=== PATIENT | female | born 1940 | race Caucasian/White ===

== ENCOUNTER 2023-02-01 02:25 | Day surgery (SDC) | payer MEDICARE, SELFPAY ==
[2023-01-31 13:30] VITALS: BMI 36.3
--- NOTE | 2023-02-01 09:30 | ECG_ITS ---
Measurements Intervals [place] Rate: 62 P: 66 DC: 205 QRS: -37 QRSD: 108 T: 11 QT: 449 QTc: 459 Interpretive Statements SINUS RHYTHM MARKED LEFT AXIS DEVIATION [QRS AXIS < -30] LOW QRS VOLTAGE IN PRECORDIAL LEADS [QRS DEFLECTION < 1.0 mV IN CHEST LEADS] PATTERN CONSISTENT WITH PULMONARY DISEASE INCOMPLETE RIGHT BUNDLE BRANCH BLOCK [90+ ms QRS DURATION, TERMINAL R IN V1/V2, 40+ ms S IN I/aVL/V4/V5/V6] ABNORMAL ECG Electronically Signed On 02-01-2023 12:01:43 CDT by Bryan Murcia M.D.
[2023-02-01 09:55] VITALS: BP 154/73; PULSE 83; RESP 16; O2SAT 96; BMI 36.3
--- NOTE | 2023-02-01 10:10 | WPDMODSED ---
Moderate Sedation Note-Pt Data Patient Data Diagnosis: atrial fibrillation Present Complaint: atrial fibrillation Procedure to be performed/Plan: moderate sedation electrical cardioversion Allergies Allergy/AdvReac Type Severity Reaction Status Date / Time No Known Allergies Allergy Verified 02/01/23 09:52 Home Medications Medication Instructions Recorded Confirmed Type albuterol sulfate 90 mcg/actuation 2 puff inhalation Q6H PRN Wheezing 01/31/23 01/31/23 History aerosol inhaler amiodarone 100 mg tablet 100 mg PO DAILY 01/31/23 01/31/23 History amlodipine 2.5 mg tablet 2.5 mg PO DAILY 01/31/23 01/31/23 History atorvastatin 20 mg tablet 20 mg PO DAILY 01/31/23 01/31/23 History cetirizine 10 mg tablet (Zyrtec) 10 mg PO DAILY 01/31/23 01/31/23 History cholecalciferol (vitamin D3) 25 25 mcg PO DAILY 01/31/23 01/31/23 History mcg (1,000 unit) tablet cyanocobalamin (vitamin B-12) 100 100 mcg PO DAILY 01/31/23 01/31/23 History mcg tablet famotidine 20 mg tablet 20 mg PO DAILY 01/31/23 01/31/23 History levothyroxine 25 mcg tablet 25 mcg PO DAILY 01/31/23 01/31/23 History losartan 100 1 tablet PO DAILY 01/31/23 01/31/23 History mg-hydrochlorothiazide 25 mg tablet meclizine 12.5 mg tablet 12.5 mg PO BID PRN Vertigo 01/31/23 01/31/23 History rivaroxaban 15 mg tablet (Xarelto) 15 mg PO DAILY 01/31/23 01/31/23 History semaglutide 0.25 mg or 0.5 mg (2 0.5 mg subcut WEEKLY 01/31/23 01/31/23 History mg/1.5 mL) subcutaneous pen injector Current Medications: Active Medications Sodium Chloride (Normal Saline Iv) 1,000 mls @ 30 mls/hr IV CONT .Q24H [facility] Miscellaneous Information (Please Add Drug Allergy Info To Patient Profile.) 1 each XX CLARIFY [facility] Stop: 03/02/23 00:00 Sedation/Anesthesia: No previous sedation/anesthesia problems (including family history). [facility] Past Medical History Medical History (Updated 02/01/23 @ 10:11 by Bryan Murcia MD) Paroxysmal atrial fibrillation Social History Social History Smoking status: Never smoker Second hand tobacco smoke exposure: No Alcohol intake: current Drinks per week: 2 Substance use: never Substance use type: does not use Living arrangements: with family Spiritual care concerns: No Mod Sed Physical Exam Physical Exam Pre Procedural Exam: Normal: Appearance, Eyes, Ears, Nose, Neck, Throat, Airway, Lungs, Heart Size, Heart Rate, Neuro Exam, Abdomen, Extremities and Skin and Variation: Heart Rhythm ( irregular irregular) Hours since solid foods: 12 Hours since liquid intake: 12 Mallampati Classification: class II Internal Medicine - PN: Obj Da Vital Signs Vital Signs: Vital Signs - 24 hr 02/01/23 09:55 Pulse Rate 83 Respiratory Rate 16 Blood Pressure 154/73 H Pulse Oximetry 96 Oxygen Delivery Room Air Meds/Results Medications: Active Medications Generic Name Dose Route Start Last Admin Trade Name Freq PRN Reason Stop Dose Admin Sodium Chloride 1,000 mls @ 30 mls/hr 02/01/23 09:30 Normal Saline Iv IV CONT .Q24H [facility] Miscellaneous Information 1 each 01/31/23 00:01 Please Add Drug Allergy Info To Patient Profile. XX 03/02/23 00:00 CLARIFY [facility] Labs 02/01/23 09:51 ASA Classification/Sedation ASA Classification/Sedation ASA Class: II Emergent: No Risks: Risks, benefits and alternatives explained and patient/family accepted plan for sedation. Patient re-evaluated immediately prior to sedation.
[2023-02-01 10:14] LABS: Anion Gap 3 mmol/L (8-16); Blood Urea Nitrogen 24 mg/dL (7-17); Calcium 9.3 mg/dL (8.4-10.2); Carbon Dioxide 31 mmol/L (22-30); Chloride 105 mmol/L (98-107); Estimated CRCL calculation 29 ml/min; Estimated Glomerular Filt Rate 36; Glucose 105 mg/dL (65-110); Magnesium 1.9 mg/dL (1.6-2.3); Potassium 3.8 mmol/L (3.4-5.0); Sodium 139 mmol/L (137-145)
[2023-02-01 10:44] VITALS: BP 154/73; PULSE 75; RESP 16; O2SAT 95
[2023-02-01 10:47] VITALS: BP 138/85; PULSE 79; RESP 19; O2SAT 96
--- NOTE | 2023-02-01 10:54 | WPDCARDVER ---
Cardioversion Cardioversion Date of procedure: 02/01/23 Procedure: 1. Electrical cardioversion 2. Moderate sedation Pre-op diagnosis: atrial fibrillation Post-op diagnosis: Same Indications: atrial fibrillation Description of procedure: after discussing the risks, benefits and alternatives the patient agreed both via verbal and written informed consent. Risks discussed included skin retraction or burn, stroke, , adverse reaction to anesthesia, shocking into more problematic heart rhythm. After time-out was taken and after previously establishing continuous compliance monitor, pulse oxygenation and serial blood pressure assessment, procedure was started Procedure start time 10:43 a.m. Procedure stop time 10:46 a.m. Complications: None Blood loss: None Sedation: 2 mg of Versed and 50 mcg of fentanyl for moderate sedation Patient was monitored and medications were provided by Deisy Joyce RN Findings: successful christian of sinus rhythm from atrial fibrillation using 150 joules of synchronized biphasic energy Moderate sedation Conclusion: 1. Successful christian of sinus rhythm using 150 joules of biphasic synchronized energy 2. Moderate sedation
[2023-02-01 11:00] VITALS: BP 133/78; PULSE 66; RESP 13; O2SAT 96
--- NOTE | 2023-02-01 11:00 | ECG_ITS ---
Measurements Intervals [place] Rate: 79 P: [place]: 0 QRS: -45 QRSD: 97 T: -14 QT: 302 QTc: 347 Interpretive Statements ATRIAL FIBRILLATION LEFT ANTERIOR FASCICULAR BLOCK [QRS AXIS <= -45, QR IN I, RS IN II] NONSPECIFIC ST & T-WAVE ABNORMALITY ABNORMAL ECG NO PREVIOUS ECG AVAILABLE FOR COMPARISON Electronically Signed On 02-01-2023 12:00:49 CDT by Bryan Murcia M.D.
[2023-02-01 11:15] VITALS: BP 125/71; PULSE 64; RESP 14; O2SAT 93
[2023-02-01 11:30] VITALS: BP 133/72; PULSE 66; RESP 14; O2SAT 93
== END 2023-02-01 11:45 | disposition home or self-care (01) ==
PROVIDERS: PCP Family Medicine; Visit Provider Internal Medicine Cardiovascular Disease
PROC: 5A2204Z Restoration of Cardiac Rhythm, Single (ICD-10-PCS; principal; 2023-02-01 11:00)
DX: I48.0 Paroxysmal atrial fibrillation (principal); G47.33 Obstructive sleep apnea (adult) (pediatric); I65.21 Occlusion and stenosis of right carotid artery; I10 Essential (primary) hypertension; E78.5 Hyperlipidemia, unspecified; K21.9 Gastro-esophageal reflux disease without esophagitis; E55.9 Vitamin D deficiency, unspecified; Z79.01 Long term (current) use of anticoagulants; Z79.51 Long term (current) use of inhaled steroids; Z79.899 Other long term (current) drug therapy; I70.0 Atherosclerosis of aorta
CPT/HCPCS: 36415; 80048; 83735; 92960; J2250; J3010

== ENCOUNTER 2023-05-26 10:58 | Outpatient (CLI) | payer MEDICARE, SELFPAY ==
--- NOTE | ~2023-05-26 | XR_ITS ---
XR chest 2V DATE: 05/26/2023 11:24 INDICATION: Dyspnea on exertion TECHNIQUE: PA and lateral views COMPARISON: None FINDINGS: Normal heart size. There is aortic calcification and mild unfolding. No hilar or mediasti nal enlargement. No pulmonary infiltrate or consolidation, pulmonary vascular congestion or pleural effusion or pneumothorax. There is scoliosis and degenerative change of the thoracic and lumbar spine. There is osteopenia. IMPRESSION: No active cardiopulmonary disease Aortic atherosclerosis Reviewed, dictated and finalized at location B.
== END 2023-05-26 10:59 | disposition home or self-care (01) ==
PROVIDERS: PCP Family Medicine; Visit Provider Nurse Practitioner Adult Health
DX: R06.09 Other forms of dyspnea (principal); I70.0 Atherosclerosis of aorta
CPT/HCPCS: 71046

== ENCOUNTER 2023-06-08 02:07 | Day surgery (SDC) | payer MEDICARE, SELFPAY ==
[2023-06-07 13:50] VITALS: BMI 37.8
[2023-06-08] VITALS (9 sets, daily range): BP systolic 124–180; BP diastolic 63–91; PULSE 63–76; RESP 12–18; TEMP 36.6; O2SAT 92–97; BMI 38.3
--- NOTE | 2023-06-08 10:36 | ECG_ITS ---
Rate [place] QRSd QT QTc P QRS T Severity 67 0 91 [phone] -39 32 Abnormal ECG ATRIAL FLUTTER/TACHYCARDIA WITH NORMAL VENTRICULAR RESPONSE LEFT AXIS DEVIATION BORDERLINE T WAVE ABNORMALITY- INFERIOR LEADS BASELINE ARTIFACT- I, II, III, AVR, AVL, AVF, V4-V6 ABNORMAL ECG COMPARED TO ECG 02/01/2023 10:51:19 ATRIAL FLUTTER NOW PRESENT Electronically Signed On 06-08-2023 11:21:54 CDT by Biju FREEMAN
[2023-06-08 11:12] LABS: Anion Gap 4 mmol/L (8-16); Blood Urea Nitrogen 19 mg/dL (7-17); Carbon Dioxide 27 mmol/L (22-30); Chloride 106 mmol/L (98-107); Estimated CRCL calculation 31 ml/min; Estimated Glomerular Filt Rate 39; Glucose 105 mg/dL (65-110); Potassium 3.8 mmol/L (3.4-5.0); Sodium 137 mmol/L (137-145)
--- NOTE | 2023-06-08 11:47 | WPDMODSED ---
Moderate Sedation Note-Pt Data Patient Data Diagnosis: Atrial fibrillation Present Complaint: Atrial fibrillation Procedure to be performed/Plan: Moderate sedation Electrical cardioversion Allergies Allergy/AdvReac Type Severity Reaction Status Date / Time No Known Allergies Allergy Verified 06/07/23 13:42 Home Medications Medication Instructions Recorded Confirmed Type albuterol sulfate 90 mcg/actuation 2 puff inhalation Q6H PRN Wheezing 01/31/23 06/07/23 History aerosol inhaler amiodarone 100 mg tablet 200 mg PO DAILY 01/31/23 06/08/23 History amlodipine 2.5 mg tablet 2.5 mg PO DAILY 01/31/23 06/08/23 History atorvastatin 20 mg tablet 20 mg PO DAILY 01/31/23 06/07/23 History cetirizine 10 mg tablet (Zyrtec) 10 mg PO DAILY 01/31/23 06/08/23 History cholecalciferol (vitamin D3) 25 25 mcg PO DAILY 01/31/23 06/08/23 History mcg (1,000 unit) tablet cyanocobalamin (vitamin B-12) 100 100 mcg PO DAILY 01/31/23 06/08/23 History mcg tablet famotidine 20 mg tablet 20 mg PO BID 01/31/23 06/08/23 History levothyroxine 25 mcg tablet 25 mcg PO DAILY 01/31/23 06/08/23 History losartan 100 1 tablet PO DAILY 01/31/23 06/08/23 History mg-hydrochlorothiazide 25 mg tablet meclizine 12.5 mg tablet 12.5 mg PO BID PRN Vertigo 01/31/23 06/07/23 History rivaroxaban 15 mg tablet (Xarelto) 15 mg PO DAILY 01/31/23 06/08/23 History Current Medications: Active Medications Sodium Chloride (Normal Saline Iv) 1,000 mls @ 30 mls/hr IV CONT .Q24H [facility] Sedation/Anesthesia: No previous sedation/anesthesia problems (including family history). [facility] Past Medical History Medical History (Updated 02/01/23 @ 10:11 by Bryan Murcia MD) Paroxysmal atrial fibrillation Social History Social History Smoking status: Never smoker Second hand tobacco smoke exposure: No Alcohol intake: current Drinks per week: 1 Substance use: never Substance use type: does not use Living arrangements: with family Gender identity (if verbalized by the patient): Female Spiritual care concerns: No Mod Sed Physical Exam Physical Exam Pre Procedural Exam: Normal: Appearance, Eyes, Ears, Nose, Neck, Throat, Airway, Lungs, Heart Size, Heart Rate, Neuro Exam, Extremities and Skin and Variation: Heart Rhythm (Irregular irregular) Hours since solid foods: 12 Hours since liquid intake: 12 Mallampati Classification: class II Internal Medicine - PN: Obj Da Vital Signs Vital Signs: Vital Signs - 24 hr 06/08/23 10:00 Temperature 36.6 C Pulse Rate 76 Respiratory Rate 18 Blood Pressure 158/75 H Pulse Oximetry 97 Oxygen Delivery Room Air Meds/Results Medications: Active Medications Generic Name Dose Route Start Last Admin Trade Name Freq PRN Reason Stop Dose Admin Sodium Chloride 1,000 mls @ 30 mls/hr 06/08/23 10:00 Normal Saline Iv IV CONT .Q24H [facility] Labs 06/08/23 10:42 Labs: Laboratory Results - last 24 hr 06/08/23 10:42 Sodium 137 Potassium 3.8 Chloride 106 Carbon Dioxide 27 Anion Gap 4 L BUN 19 H Creatinine 1.30 H Estim Creat Clear Calc 31 Estimated GFR 39 L Glucose 105 Calcium 9.0 Magnesium 2.0 ASA Classification/Sedation ASA Classification/Sedation ASA Class: II Emergent: No Risks: Risks, benefits and alternatives explained and patient/family accepted plan for sedation. Patient re-evaluated immediately prior to sedation.
--- NOTE | 2023-06-08 11:57 | P.PCNCVR_ITS ---
Cardioversion Cardioversion Date of procedure: 06/08/23 Procedure: 1. Electrical cardioversion 2. Moderate sedation Pre-op diagnosis: Atrial fibrillation Post-op diagnosis: Same Indications: Atrial fibrillation Description of procedure: After discussing risks, benefits alternatives of procedure we will via verbal and written informed consent. Risks discussed included stroke, , adverse reaction to anesthesia, shocking into more problematic heart rhythm, skin irritation or burn. After time-out was taken and after establishing continuous casino floor runner, pulse oxygenation in serial blood pressure assessments, procedure was started. Procedure start time 11:49 a.m. Procedure stop time 1:53 a.m. Complications: None Blood loss: None Medications were administered patient was monitored by Milvia Miller RN Medications given: Versed 2 mg and fentanyl 25 mcg IV for moderate sedation After confirming atrial fibrillation, 150 joules of biphasic synchronized energy was utilized to restore sinus rhythm. Sedation: As above. Versed 2 mg and fentanyl 25 mcg IV total Findings: 1. Successful judaism of sinus rhythm from atrial fibrillation using 150 joules of biphasic synchronized energy Conclusion: 1. Successful judaism of sinus rhythm from atrial fibrillation using 150 joules of biphasic synchronized energy 2. moderate sedation
== END 2023-06-08 13:15 | disposition home or self-care (01) ==
PROVIDERS: PCP Family Medicine; Visit Provider Internal Medicine Cardiovascular Disease
PROC: 5A2204Z Restoration of Cardiac Rhythm, Single (ICD-10-PCS; principal; 2023-06-08 11:30)
DX: I48.0 Paroxysmal atrial fibrillation (principal); Z79.51 Long term (current) use of inhaled steroids; Z79.01 Long term (current) use of anticoagulants
CPT/HCPCS: 36415; 80048; 83735; 92960; J2250; J3010; J7030